=== PATIENT | male | born 2005 | race Caucasian/White ===

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

== ENCOUNTER 2024-08-05 17:10 | Emergency (ER) | payer MEDICAID ==
[~2024-08-05] VITALS: Ht 190.5 cm; Wt 102.3 kg
[~2024-08-05 17:10] MED LIST changes: +ONDA-243 PO; -ONDA4TAB12 PO
[2024-08-05 17:11] VITALS: BP 132/68; PULSE 64; RESP 16; TEMP 98; O2SAT 100
--- NOTE | 2024-08-05 17:51 | RADIOLOGY REPORT ---
EXAM: DI HAND, COMPLETE (3VW MIN) INDICATION: RIGHT HAND PAIN TECHNIQUE: 3 views of the right hand COMPARISON: ANKLE, COMPLETE(3VW MIN) on DOS: 09/28/20 FINDINGS/IMPRESSION: No radiographic evidence of an acute osseous abnormality. There is no acute fracture, osseous malalig nment, or aggressive focal osseous lesion. There is no radiographically apparent joint space narrowin g.
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
== END 2024-08-05 22:16 | disposition left against medical advice (07) ==
LOC: ER 17:11
DX: S61.411A Laceration without foreign body of right hand, initial encounter (principal); Z53.21 Procedure and treatment not carried out due to patient leaving prior to being seen by health care provider; V49.9XXA Car occupant (driver) (passenger) injured in unspecified traffic accident, initial encounter; Y93.89 Activity, other specified; Y92.89 Other specified places as the place of occurrence of the external cause; Y99.8 Other external cause status
CPT/HCPCS: 73130